=== PATIENT | female | born 1980 | race Caucasian/White ===

== ENCOUNTER 2017-05-17 16:33 | Emergency (ER) | payer OTHER ==
[2017-05-17 18:26] LABS: HEMOGLOBIN 13.4 gm/dl (12.3-15.3); RED BLOOD COUNT 4.59 M/UL (4.00-5.10); WHITE BLOOD COUNT 10.8 K/UL (4.5-11.0)
[2017-05-17 18:35] LABS: BUN/CREATININE RATIO 26 (0-10)
== END 2017-05-17 21:25 | disposition home or self-care (01) ==
LOC: ER1 16:33
PROVIDERS: Emergency Medicine
DX: J40 Bronchitis, not specified as acute or chronic (principal); R42 Dizziness and giddiness; F17.200 Nicotine dependence, unspecified, uncomplicated; Z90.49 Acquired absence of other specified parts of digestive tract
CPT/HCPCS: 36415; 71010; 80053; 81001; 82550; 82553; 83874; 84484; 85025; 85379; 85610; 85730; 93005; 94664; 96374; 99285; J2930

== ENCOUNTER 2021-12-11 11:31 | Emergency (ER) | payer OTHER ==
[2021-12-11 12:26] LABS: HEMOGLOBIN 14.1 gm/dl (12.3-15.3); RED BLOOD COUNT 4.8 M/UL (4.00-5.10); WHITE BLOOD COUNT 5.6 K/UL (4.5-11.0)
[2021-12-11 13:53] LABS: BUN/CREATININE RATIO 16 (0-10)
== END 2021-12-11 17:20 | disposition home or self-care (01) ==
LOC: ER1 11:31
PROVIDERS: Student in an Organized Health Care Education/Training Program
DX: U07.1 COVID-19 (principal); F17.210 Nicotine dependence, cigarettes, uncomplicated
CPT/HCPCS: 0240U; 71045; 80048; 82550; 82553; 84484; 85025; 93005; 99285

== ENCOUNTER → 2021-12-12 | Outpatient (CLI) | payer OTHER ==
[~2021-12-12] VITALS: Ht 170.2 cm; Wt 95.7 kg
== END ==
LOC: EROP 12:10
DX: U07.1 COVID-19 (principal); Z23 Encounter for immunization; D86.9 Sarcoidosis, unspecified; F17.200 Nicotine dependence, unspecified, uncomplicated
CPT/HCPCS: M0247; Q0247